=== PATIENT | female | born 1950 | race Caucasian/White ===

== ENCOUNTER 2016-03-15 08:15 | Outpatient (CLI) | payer MEDICARE, OTHER | END 2016-03-15 08:16 | disposition home or self-care (01) | DX: B18.2 Chronic viral hepatitis C (principal) ==

== ENCOUNTER 2016-04-20 09:00 | Outpatient (CLI) | payer MEDICARE, OTHER | END 2016-04-20 09:01 | disposition home or self-care (01) | DX: E78.2 Mixed hyperlipidemia (principal); E03.9 Hypothyroidism, unspecified; Z79.899 Other long term (current) drug therapy ==

== ENCOUNTER 2016-05-30 13:24 | Outpatient (CLI) | payer MEDICARE, OTHER | END 2016-05-30 13:25 | disposition home or self-care (01) | DX: Z12.31 Encounter for screening mammogram for malignant neoplasm of breast (principal) ==

== ENCOUNTER 2016-06-06 08:20 | Outpatient (CLI) | payer MEDICARE, OTHER | END 2016-06-06 08:21 | disposition home or self-care (01) | DX: B18.2 Chronic viral hepatitis C (principal) ==

== ENCOUNTER 2017-04-03 10:06 | Outpatient (CLI) | payer MEDICARE, OTHER | END 2017-04-03 10:07 | disposition home or self-care (01) | LOC: LAB 10:06 | PROVIDERS: ATTEND Internal Medicine Gastroenterology | DX: Z86.19 Personal history of other infectious and parasitic diseases (principal) | CPT/HCPCS: 36415; 87522 ==

== ENCOUNTER 2017-04-18 08:44 | Outpatient (CLI) | payer MEDICARE, OTHER ==
[2017-04-18 13:19] LABS: BASOPHILS # (AUTO) 0.1 10^3/uL (0.0-0.1); BASOPHILS % (AUTO) 1.1 %; EOSINOPHILS # (AUTO) 0.2 10^3/uL (0.0-0.7); HGB - HEMOGLOBIN 12.7 g/dL (12.0-16.0); LYMPHOCYTES # (AUTO) 1.9 10^3/uL (1.5-3.5); LYMPHOCYTES % (AUTO) 37.6 %; MEAN CORPUSCULAR HEMOGLOBIN 30.1 pg (27.0-31.0); MEAN CORPUSCULAR HGB CONC 33.6 g/dL (32.0-36.0); MEAN CORPUSCULAR VOLUME 89.4 fL (81.0-99.0); MEAN PLATELET VOLUME 8.7 fL (7.9-10.8); MONOCYTES # (AUTO) 0.4 10^3/uL (0.0-1.0); MONOCYTES % (AUTO) 6.9 %; NEUTROPHILS # (AUTO) 2.6 10^3/uL (1.5-6.6); NEUTROPHILS % (AUTO) 50.4 %; PLT - PLATELET COUNT 219 10^3/uL (130-450); RED BLOOD COUNT 4.21 10^6/uL (4.20-5.40); RED CELL DISTRIBUTION WIDTH 13.5 % (12.0-15.0); WHITE BLOOD COUNT 5.1 x10^3/uL (4.8-10.8)
[2017-04-18 14:05] LABS: ALBUMIN 4.1 g/dL (3.2-5.5); ALBUMIN/GLOBULIN RATIO 1.4 (1.0-2.2); ALKALINE PHOSPHATASE 48 IU/L (42-121); ALT ALANINE AMINOTRANSFERASE 14 IU/L (10-60); AST ASPARTATE AMINOTRANSFERASE 20 IU/L (10-42); BILIRUBIN,TOTAL 0.4 mg/dL (0.2-1.0); BUN - BLOOD UREA NITROGEN 23 mg/dL (6-20); CALCIUM 8.9 mg/dL (8.5-10.3); CARBON DIOXIDE - CO2 25 mmol/L (21-32); CHLORIDE 106 mmol/L (101-111); CHOL/HDL RATIO 3.2 (<4.4); CHOLESTEROL 149 mg/dL; CREATININE 0.7 mg/dL (0.4-1.0); GFR - MDRD 83 (>89); GLUCOSE 97 mg/dL (70-100); HDL CHOLESTEROL 47 mg/dL; LDL CHOLESTEROL,CALCULATED 86 mg/dL; LDL/HDL RATIO 1.8 (<4.4); SODIUM 138 mmol/L (135-145); VLDL CHOLESTEROL 16 mg/dL
== END 2017-04-18 08:45 | disposition home or self-care (01) ==
LOC: LAB.N 08:44
PROVIDERS: ATTEND Nurse Practitioner Primary Care
DX: M81.0 Age-related osteoporosis without current pathological fracture (principal); Z79.899 Other long term (current) drug therapy; E03.9 Hypothyroidism, unspecified
CPT/HCPCS: 36415; 80053; 80061; 82306; 83721; 84443; 85025

== ENCOUNTER 2017-05-01 10:30 | Outpatient (CLI) | payer MEDICARE, OTHER ==
--- NOTE | 2017-05-02 12:55 | DEXA Report ---
DEXA SCAN: 05/01/2017 CLINICAL INDICATION: Osteoporosis. TECHNIQUE: Dual energy x-ray absorptiometry (DXA) was performed on a [employer] system. Regions measured are the AP spine, femoral neck, and, if needed, forearm. COMPARISON: None. In accordance with the International Society for Clinical Densitometry (ISCD) guidelines, data from previous exams may be reanalyzed using current recommendations and techniques. This is done to allow a more accurate basis for comparison with the current study. FINDINGS Data for the lumbar spine is as follows: REGION BMD (g/cm/cm) T-SCORE Z-SCORE L1 0.848 -2.4 -0.6 L2 1.036 -1.4 0.4 L3 0.964 -2.0 -0.2 L4 1.127 -0.6 1.2 L1-L4 1.006 -1.5 0.3 NOTE: All evaluable vertebrae are used for classification. Data for the hip is as follows: REGION BMD (g/cm/cm) T-SCORE Z-SCORE Neck 0.753 -2.0 -0.3 TOTAL 0.780 -1.8 -0.3 NOTE: The femoral neck or total proximal femur, whichever is lowest, is used for classification. IMPRESSION WHO CLASSIFICATION BASED ON THE INTERNATIONAL REFERENCE STANDARD IS OSTEOPENIA. FRACTURE RISK IS INCREASED. RECOMMENDATION: Patients with diagnosis of osteoporosis or osteopenia should have regular bone mineral density assessment. For those eligible for Medicare, routine testing is allowed once every 2 years. Testing frequency can be increased for patients who have rapidly progressing disease or for those who are receiving medical therapy to restore bone mass. COMMENT World Health Organization (WHO) definitions for osteoporosis and osteopenia: NORMAL BMD: T-score at 1.0 or higher, fracture risk is low. OSTEOPENIA BMD: T-score between 1.0 and -2.5, fracture risk is increased. OSTEOPOROSIS BMD: T-score at 2.5 or lower, fracture risk high. National Osteoporosis Foundation recommends: 1. Obtain adequate dietary calcium (at least 1200 mg per day) and vitamin D (400 -800 international units per day). 2. Participate, as appropriate, in regular weightbearing and muscle- strengthening exercise. 3. Avoid tobacco use and reduce alcohol and caffeine intake. 4. For more detailed information see the website at www.NOF.org. TD: 05/01/2017 11:39 MTDD
== END 2017-05-01 10:31 | disposition home or self-care (01) ==
LOC: DI 10:30
PROVIDERS: ATTEND Nurse Practitioner Primary Care
DX: M85.89 Other specified disorders of bone density and structure, multiple sites (principal); L65.9 Nonscarring hair loss, unspecified
CPT/HCPCS: 36415; 77080; 82728

== ENCOUNTER 2018-03-21 09:57 | Outpatient (CLI) | payer MEDICARE, OTHER ==
[2018-03-21 13:52] LABS: BASOPHILS % (AUTO) 0.8 %; EOSINOPHILS # (AUTO) 0.1 10^3/uL (0.0-0.7); EOSINOPHILS % (AUTO) 2.8 %; HGB - HEMOGLOBIN 13.9 g/dL (12.0-16.0); LYMPHOCYTES # (AUTO) 1.5 10^3/uL (1.5-3.5); LYMPHOCYTES % (AUTO) 31.4 %; MEAN CORPUSCULAR HGB CONC 32.7 g/dL (32.0-36.0); MEAN CORPUSCULAR VOLUME 91.8 fL (81.0-99.0); MEAN PLATELET VOLUME 8.6 fL (7.9-10.8); MONOCYTES # (AUTO) 0.3 10^3/uL (0.0-1.0); MONOCYTES % (AUTO) 6.8 %; NEUTROPHILS # (AUTO) 2.7 10^3/uL (1.5-6.6); NEUTROPHILS % (AUTO) 58.2 %; PLT - PLATELET COUNT 225 10^3/uL (130-450); RED BLOOD COUNT 4.63 10^6/uL (4.20-5.40); RED CELL DISTRIBUTION WIDTH 13.3 % (12.0-15.0); WHITE BLOOD COUNT 4.7 x10^3/uL (4.8-10.8)
[2018-03-21 14:21] LABS: ALBUMIN 4.4 g/dL (3.2-5.5); ALBUMIN/GLOBULIN RATIO 1.3 (1.0-2.2); ALKALINE PHOSPHATASE 48 IU/L (42-121); ALT ALANINE AMINOTRANSFERASE 18 IU/L (10-60); AST ASPARTATE AMINOTRANSFERASE 23 IU/L (10-42); BILIRUBIN,TOTAL 0.5 mg/dL (0.2-1.0); BUN - BLOOD UREA NITROGEN 16 mg/dL (6-20); CALCIUM 9.2 mg/dL (8.5-10.3); CARBON DIOXIDE - CO2 27 mmol/L (21-32); CHLORIDE 104 mmol/L (101-111); CHOL/HDL RATIO 2.8 (<4.4); CHOLESTEROL 183 mg/dL; CREATININE 0.7 mg/dL (0.4-1.0); GFR - MDRD 83 (>89); GLUCOSE 88 mg/dL (70-100); HDL CHOLESTEROL 65 mg/dL; LDL CHOLESTEROL,CALCULATED 103 mg/dL; LDL/HDL RATIO 1.6 (<4.4); SODIUM 139 mmol/L (135-145); TOTAL PROTEIN 7.7 g/dL (6.7-8.2); VLDL CHOLESTEROL 15 mg/dL
== END 2018-03-21 23:59 | disposition home or self-care (01) ==
LOC: LAB.R 09:57
PROVIDERS: ATTEND Nurse Practitioner Primary Care
DX: M81.0 Age-related osteoporosis without current pathological fracture (principal); Z79.899 Other long term (current) drug therapy; E03.9 Hypothyroidism, unspecified; E78.5 Hyperlipidemia, unspecified
CPT/HCPCS: 80053; 80061; 82306; 83721; 84443; 85025

== ENCOUNTER 2018-05-19 10:22 | Outpatient (CLI) | payer MEDICARE, OTHER ==
--- NOTE | 2018-05-21 14:47 | Mammography Report ---
Reason: SCREENING MAMMO Procedure Date: 05/19/2018 Accession Number: [id number] / [id number] Procedure: RAHEEL - Screening Mammo w/Baldomero CPT Code: FULL RESULT: EXAM: Screening Mammo w/Baldomero DATE: 05/19/2018 10:55 AM CLINICAL HISTORY: Screening exam. No reported risk factors. TECHNIQUE: (B) - Bilateral CC and MLO views were obtained. A right laterally exaggerated views obtained. COMPARISON: 05/30/2016 through 12/26/2012. PARENCHYMAL PATTERN: (D) - The breast(s) demonstrate(s) heterogeneously dense fibroglandular parenchyma. FINDINGS: There are typically benign coarse calcifications. There are no suspicious masses, calcifications, or areas of distortion. IMPRESSION: Benign findings. BI-RADS category 2. RECOMMENDATION: (ANNUAL) - Recommend routine annual screening mammography. BI-RADS CATEGORY: (2) - Benign Findings. STANDARD QUALIFYING STATEMENTS: 1. This examination was not reviewed with the aid of Computer-Aided Detection (CAD). 2. A negative or benign imaging report should not preclude biopsy if clinically suspicious findings are present. 3. Dense breasts may obscure an underlying neoplasm. 4. This examination was reviewed with the aid of 3D breast imaging (tomosynthesis).
== END 2018-05-19 10:23 | disposition home or self-care (01) ==
LOC: DI 10:22
DX: Z12.31 Encounter for screening mammogram for malignant neoplasm of breast (principal)
CPT/HCPCS: 77063; 77067

== ENCOUNTER 2019-11-29 09:08 | Outpatient (CLI) | payer MEDICARE, OTHER ==
[2019-11-29 10:03] LABS: BASOPHILS % (AUTO) 0.9 %; EOSINOPHILS # (AUTO) 0.1 10^3/uL (0.0-0.7); EOSINOPHILS % (AUTO) 3.1 %; LYMPHOCYTES # (AUTO) 1.5 10^3/uL (1.5-3.5); LYMPHOCYTES % (AUTO) 33.6 %; MEAN CORPUSCULAR HEMOGLOBIN 30.2 pg (27.0-31.0); MEAN CORPUSCULAR HGB CONC 32.6 g/dL (32.0-36.0); MEAN CORPUSCULAR VOLUME 92.8 fL (81.0-99.0); MEAN PLATELET VOLUME 9.6 fL (7.9-10.8); MONOCYTES # (AUTO) 0.4 10^3/uL (0.0-1.0); MONOCYTES % (AUTO) 8.1 %; NEUTROPHILS # (AUTO) 2.5 10^3/uL (1.5-6.6); NEUTROPHILS % (AUTO) 54.1 %; PLT - PLATELET COUNT 220 10^3/uL (130-450); WHITE BLOOD COUNT 4.6 x10^3/uL (4.8-10.8)
[2019-11-29 10:21] LABS: ALBUMIN/GLOBULIN RATIO 1.3 (1.0-2.2); ALKALINE PHOSPHATASE 49 IU/L (42-121); ALT ALANINE AMINOTRANSFERASE 20 IU/L (10-60); AST ASPARTATE AMINOTRANSFERASE 24 IU/L (10-42); BILIRUBIN,TOTAL 0.7 mg/dL (0.2-1.0); BUN - BLOOD UREA NITROGEN 15 mg/dL (6-20); CALCIUM 9.3 mg/dL (8.5-10.3); CARBON DIOXIDE - CO2 27 mmol/L (21-32); CHLORIDE 102 mmol/L (101-111); CHOL/HDL RATIO 2.7 (<4.4); CHOLESTEROL 156 mg/dL; CREATININE 0.7 mg/dL (0.4-1.0); GLUCOSE 99 mg/dL (70-100); HDL CHOLESTEROL 58 mg/dL; LDL CHOLESTEROL,CALCULATED 89 mg/dL; LDL/HDL RATIO 1.5 (<4.4); SODIUM 138 mmol/L (135-145); VLDL CHOLESTEROL 9 mg/dL
[2019-11-29 10:33] LABS: THYROID STIMULATING HORMONE 1.25 uIU/mL (0.34-5.60)
[2019-11-29 10:35] LABS: FREE T3 2.96 pg/mL (2.5-3.9); FREE T4 (FREE THYROXINE) 1.18 ng/dL (0.58-1.64)
== END 2019-11-29 09:09 | disposition home or self-care (01) ==
LOC: LAB 09:08
PROVIDERS: ATTEND Family Medicine
DX: E78.5 Hyperlipidemia, unspecified (principal); E03.9 Hypothyroidism, unspecified; M81.0 Age-related osteoporosis without current pathological fracture
CPT/HCPCS: 36415; 80053; 80061; 83721; 84439; 84443; 84481; 85025

== ENCOUNTER 2019-11-29 11:02 | Outpatient (CLI) | payer MEDICARE, OTHER ==
--- NOTE | 2019-12-02 16:27 | Mammography Report ---
BILATERAL DIGITAL SCREENING MAMMOGRAM 3D/2D: 11/29/2019 CLINICAL: Routine screening. Comparison is made to exams dated: 05/19/2018 mammogram, 05/30/2016 mammogram, 05/07/2015 mammogram, mammogram, 12/26/2012 mammogram, and 10/20/2010 mammogram - [facility]. The tissue of both breasts is heterogeneously dense. This may lower the sensitivity of mammography. No significant masses, calcifications, or other findings are seen in either breast. There has been no significant interval change. IMPRESSION: NEGATIVE There is no mammographic evidence of malignancy. A 1 year screening mammogram is recommended. This exam was interpreted at Station ID: [id number]. NOTE: For mammograms, a report in lay terms will be sent to the patient. Approximately 15% of breast malignancies will not be visualized mammographically. In the management of a palpable breast mass, a negative mammogram must not discourage biopsy of a clinically suspicious lesion. Electronically Signed By: William Low M.D. [email or web address]/[email or web address]:11/29/2019 13:09:50 ACR BI-RADS Category 1: Negative 3341F PARENCHYMAL PATTERN: (D) - The breast(s) demonstrate(s) heterogeneously dense fibroglandular bry bass. BI-RADS CATEGORY: (1) - 1 RECOMMENDATION: (ANNUAL) - Recommend routine annual screening mammography. [id number] 1 year screening LATERALITY: (B)
== END 2019-11-29 11:03 | disposition home or self-care (01) ==
LOC: DI.N 11:02
PROVIDERS: ATTEND Family Medicine
DX: Z12.31 Encounter for screening mammogram for malignant neoplasm of breast (principal)
CPT/HCPCS: 77063; 77067

== ENCOUNTER 2020-04-27 09:48 | Outpatient (CLI) | payer MEDICARE, OTHER ==
--- NOTE | 2020-04-27 16:13 | DEXA Report ---
PROCEDURE: Dexa Spine and/or Hip INDICATIONS: BONE DISORDER TECHNIQUE: Dual energy x-ray absorptiometry (DXA) was performed on a [employer] System. Regions measur ed are the AP Spine, femoral neck, and if needed forearm. COMPARISON: 05/01/2017. FINDINGS: Lumbar Spine: Bone Mineral Density 0.925 g/cm/cm,T score -2.1, osteopenia Left Hip: Bone Mineral Density 0.787 g/cm/cm,T score -1.8, osteopenia Left Femoral Neck: Bone Mineral Density 0.743 g/cm/cm, T score -2.1, osteopenia (T score greater or equal to -1.0: NORMAL) (T score from -1.1 to -2.4: OSTEOPENIA) (T score less than or equal to -2.5 to: OSTEOPOROSIS) Impression: Osteopenia. Bone marrow density has increased 0.9% in the interval since prior exam obtai wesley 05/01/2017. Patients with diagnosis of osteoporosis or osteopenia should have regular bone mineral density assess ment. For those eligible for Medicare, routine testing is allowed once every 2 years. Testing frequ ency can be increased for patients who have rapidly progressing disease or for those who are receivin g medical therapy to restore bone mass. Reviewed by: Cathy Sullivan MD, PhD on 04/27/2020 4:12 PM PDT Approved by: Cathy Sullivan MD, PhD on 04/27/2020 4:12 PM PDT Station ID: [id number]
== END 2020-04-27 09:49 | disposition home or self-care (01) ==
LOC: DI 09:48
PROVIDERS: ATTEND Family Medicine
DX: M85.88 Other specified disorders of bone density and structure, other site (principal)

== ENCOUNTER 2021-05-06 08:13 | Outpatient (CLI) | payer MEDICARE, OTHER ==
[2021-05-06 11:55] LABS: BASOPHILS # (AUTO) 0.1 10^3/uL (0.0-0.1); BASOPHILS % (AUTO) 1.2 %; EOSINOPHILS # (AUTO) 0.3 10^3/uL (0.0-0.7); EOSINOPHILS % (AUTO) 5.8 %; HGB - HEMOGLOBIN 12.9 g/dL (12.0-16.0); LYMPHOCYTES % (AUTO) 41.4 %; MEAN CORPUSCULAR HEMOGLOBIN 29.7 pg (27.0-31.0); MEAN CORPUSCULAR HGB CONC 32.3 g/dL (32.0-36.0); MEAN CORPUSCULAR VOLUME 92.2 fL (81.0-99.0); MEAN PLATELET VOLUME 10.6 fL (7.9-10.8); MONOCYTES # (AUTO) 0.4 10^3/uL (0.0-1.0); MONOCYTES % (AUTO) 8.9 %; NEUTROPHILS # (AUTO) 2.1 10^3/uL (1.5-6.6); NEUTROPHILS % (AUTO) 42.3 %; PLT - PLATELET COUNT 227 10^3/uL (130-450); RED BLOOD COUNT 4.34 10^6/uL (4.20-5.40); RED CELL DISTRIBUTION WIDTH 12.9 % (12.0-15.0); WHITE BLOOD COUNT 4.9 x10^3/uL (4.8-10.8)
[2021-05-06 11:59] LABS: ALBUMIN 4.2 g/dL (3.2-5.5); ALBUMIN/GLOBULIN RATIO 1.4 (1.0-2.2); ALKALINE PHOSPHATASE 52 IU/L (42-121); ALT ALANINE AMINOTRANSFERASE 17 IU/L (10-60); AST ASPARTATE AMINOTRANSFERASE 21 IU/L (10-42); BILIRUBIN,TOTAL 0.5 mg/dL (0.2-1.0); BUN - BLOOD UREA NITROGEN 21 mg/dL (6-20); CALCIUM 9.2 mg/dL (8.5-10.3); CARBON DIOXIDE - CO2 27 mmol/L (21-32); CHLORIDE 100 mmol/L (101-111); CHOL/HDL RATIO 2.8 (<4.4); CHOLESTEROL 172 mg/dL; CREATININE 0.7 mg/dL (0.4-1.0); GFR - MDRD 82 (>89); GLUCOSE 93 mg/dL (70-100); HDL CHOLESTEROL 62 mg/dL; LDL CHOLESTEROL,CALCULATED 96 mg/dL; LDL/HDL RATIO 1.5 (<4.4); SODIUM 136 mmol/L (135-145); TOTAL PROTEIN 7.2 g/dL (6.7-8.2); TRIGLYCERIDES 71 mg/dL; VLDL CHOLESTEROL 14 mg/dL
[2021-05-06 12:07] LABS: THYROID STIMULATING HORMONE 1.39 uIU/mL (0.34-5.60)
== END 2021-05-06 08:14 | disposition home or self-care (01) ==
LOC: LAB.N 08:13
PROVIDERS: ATTEND Family Medicine
DX: B19.20 Unspecified viral hepatitis C without hepatic coma (principal); E78.5 Hyperlipidemia, unspecified; E03.9 Hypothyroidism, unspecified
CPT/HCPCS: 36415; 80053; 80061; 83721; 84443; 85025

== ENCOUNTER 2022-01-13 10:55 | Outpatient (CLI) | payer MEDICARE, OTHER ==
--- NOTE | 2022-01-14 10:38 | Mammography Report ---
BILATERAL DIGITAL SCREENING MAMMOGRAM 3D/2D: 01/13/2022 CLINICAL: Routine screening. Comparison is made to exams dated: 11/29/2019 mammogram, 05/19/2018 mammogram, and 05/30/2016 mammogra m - [facility]. Both breasts are heterogeneously dense, which may obscure small masses (category c / 51-75% glandular tissue). No significant masses, calcifications, or other findings are seen in either breast. There has been no significant interval change. IMPRESSION: NEGATIVE There is no mammographic evidence of malignancy. A 1 year screening mammogram is recommended. Based on the Tyrer Cuzick model (a risk assessment model) the patients lifetime risk is 5.6% and her 10 year risk is 4.6%. According to the ACR, ACS, and NCCN guidelines, an annual breast MRI exam mauro g with mammogram is recommended if the patients lifetime risk is 20% or greater. This exam was interpreted at Station ID: [id number]. NOTE: For mammograms, a report in lay terms will be sent to the patient. Approximately 15% of breast malignancies will not be visualized mammographically. In the management of a palpable breast mass, a negative mammogram must not discourage biopsy of a clinically suspicious lesion. Electronically Signed By: Mynor patnio/michael:01/13/2022 12:41:45 ACR BI-RADS Category 1: Negative 3341F PARENCHYMAL PATTERN: (D) - The breast(s) demonstrate(s) heterogeneously dense fibroglandular bry bass. BI-RADS CATEGORY: (1) - 1 RECOMMENDATION: (ANNUAL) - Recommend routine annual screening mammography. [id number] 1 year screening LATERALITY: (B)
== END 2022-01-13 10:56 | disposition home or self-care (01) ==
LOC: DI.N 10:55
DX: Z12.31 Encounter for screening mammogram for malignant neoplasm of breast (principal)

== ENCOUNTER 2022-06-22 08:00 | Outpatient (CLI) | payer MEDICARE, OTHER ==
[2022-06-22 11:42] LABS: BASOPHILS # (AUTO) 0.1 10^3/uL (0.0-0.1); BASOPHILS % (AUTO) 1.1 %; EOSINOPHILS # (AUTO) 0.2 10^3/uL (0.0-0.7); EOSINOPHILS % (AUTO) 4.2 %; HCT - HEMATOCRIT 42.7 % (37.0-47.0); HGB - HEMOGLOBIN 13.6 g/dL (12.0-16.0); LYMPHOCYTES # (AUTO) 1.9 10^3/uL (1.5-3.5); LYMPHOCYTES % (AUTO) 35.2 %; MEAN CORPUSCULAR HEMOGLOBIN 29.4 pg (27.0-31.0); MEAN CORPUSCULAR HGB CONC 31.9 g/dL (32.0-36.0); MEAN CORPUSCULAR VOLUME 92.4 fL (81.0-99.0); MEAN PLATELET VOLUME 10.4 fL (7.9-10.8); MONOCYTES # (AUTO) 0.5 10^3/uL (0.0-1.0); MONOCYTES % (AUTO) 9.3 %; NEUTROPHILS # (AUTO) 2.8 10^3/uL (1.5-6.6); PLT - PLATELET COUNT 260 10^3/uL (130-450); RED BLOOD COUNT 4.62 10^6/uL (4.20-5.40); RED CELL DISTRIBUTION WIDTH 13.2 % (12.0-15.0); WHITE BLOOD COUNT 5.5 x10^3/uL (4.8-10.8)
[2022-06-22 12:45] LABS: ALBUMIN 4.5 g/dL (3.2-5.5); ALBUMIN/GLOBULIN RATIO 1.4 (1.0-2.2); ALKALINE PHOSPHATASE 50 IU/L (42-121); ALT ALANINE AMINOTRANSFERASE 20 IU/L (10-60); AST ASPARTATE AMINOTRANSFERASE 26 IU/L (10-42); BILIRUBIN,TOTAL 0.5 mg/dL (0.2-1.0); BUN - BLOOD UREA NITROGEN 21 mg/dL (6-20); CALCIUM 9.7 mg/dL (8.5-10.3); CARBON DIOXIDE - CO2 29 mmol/L (21-32); CHLORIDE 107 mmol/L (101-111); CHOL/HDL RATIO 2.7 (<4.4); CHOLESTEROL 183 mg/dL; CREATININE 0.8 mg/dL (0.4-1.0); GFR - MDRD 70 (>89); GLUCOSE 106 mg/dL (70-100); HDL CHOLESTEROL 67 mg/dL; LDL CHOLESTEROL,CALCULATED 100 mg/dL; LDL/HDL RATIO 1.5 (<4.4); POTASSIUM 4.3 mmol/L (3.5-5.0); SODIUM 140 mmol/L (135-145); TOTAL PROTEIN 7.7 g/dL (6.7-8.2); TRIGLYCERIDES 80 mg/dL; VLDL CHOLESTEROL 16 mg/dL
[2022-06-22 12:51] LABS: THYROID STIMULATING HORMONE 0.68 uIU/mL (0.34-5.60)
== END 2022-06-22 23:59 | disposition home or self-care (01) ==
LOC: LAB.N 08:00
PROVIDERS: ATTEND Family Medicine
DX: E78.5 Hyperlipidemia, unspecified (principal); E03.9 Hypothyroidism, unspecified
CPT/HCPCS: 36415; 80053; 80061; 83721; 84443; 85025

== ENCOUNTER 2022-07-20 14:37 | Outpatient (CLI) | payer MEDICARE, OTHER ==
--- NOTE | 2022-07-20 19:03 | DEXA Report ---
PROCEDURE: Dexa Spine and/or Hip INDICATIONS: POST MENOPAUSAL TECHNIQUE: Dual energy x-ray absorptiometry (DXA) was performed on a [employer]ero System. Regions measur ed are the AP Spine, femoral neck, and if needed forearm. COMPARISON: 04/27/2020 FINDINGS: Lumbar Spine: Bone Mineral Density 0.981 g/cm/cm,T score -1.7. Previously -2.1 Left Femoral Neck: Bone Mineral Density 0.697 g/cm/cm, T score -2.5. Previously -2.1 Left Hip: Bone Mineral Density 0.780 g/cm/cm,T score -1.8. Previously -1.8 (T score greater or equal to -1.0: NORMAL) (T score from -1.1 to -2.4: OSTEOPENIA) (T score less than or equal to -2.5 to: OSTEOPOROSIS) Impression: By WHO criteria, this patient has low bone density (osteopenia). Interval statistical increase in bone minteral density of the lumbar spine. No statistical interval c hange in bone minteral density of the hip. Patients with diagnosis of osteoporosis or osteopenia should have regular bone mineral density assess ment. For those eligible for Medicare, routine testing is allowed once every 2 years. Testing frequ ency can be increased for patients who have rapidly progressing disease or for those who are receivin g medical therapy to restore bone mass. Reviewed by: Baldev Grimes MD on 07/20/2022 6:02 PM HARIS Approved by: Baldev Grimes MD on 07/20/2022 6:02 PM HARIS Station ID: [id number]
== END 2022-07-20 14:38 | disposition home or self-care (01) ==
LOC: DI 14:37
PROVIDERS: ATTEND Family Medicine
DX: Z78.0 Asymptomatic menopausal state (principal); M85.80 Other specified disorders of bone density and structure, unspecified site

== ENCOUNTER 2022-10-23 14:38 | Emergency (ER) | payer MEDICARE, OTHER ==
--- NOTE | 2022-10-23 15:01 | XRAY Report ---
PROCEDURE: Finger(s) RT INDICATIONS: Trauma TECHNIQUE: AP hand, 2 views of the third finger(s) acquired. COMPARISON: None. FINDINGS: Bones: No fractures or dislocations. No suspicious bony lesions. Flexion at the distal interphala ngeal joint of the third digit. Soft tissues: No suspicious soft tissue calcifications or masses. IMPRESSION: 1. Findings suggestive of extensor tendon injury involving the third digit. 2. No acute fracture. No osseous lesion. If symptoms and/or clinical suspicion for pathology continue , further assessment with repeat plain films, or advanced imaging (e.g., CT, MRI, or bone scan) is re commended for further assessment. Reviewed by: Norma Gordon MD on 10/23/2022 2:59 PM PDT Approved by: Norma Gordon MD on 10/23/2022 2:59 PM PDT Station ID: [id number]
--- NOTE | 2022-10-23 16:17 | ED Physician Documentation ---
PD HPI UPPER EXT INJURY - History obtained from History obtained from: Patient <Issa Madrigal - Last Filed: 10/23/22 16:17> - History obtained from History obtained from: Patient - History of Present Illness Location: Left, Finger (middle) Type of injury: Other (injured while stuffing cushions) Recently seen: Not recently seen <Ricardo Michele - Last Filed: 10/23/22 17:35> - Stated complaint Stated Complaint: LT FINGER INJ - Chief complaint Chief Complaint: Trauma Ext - Additonal information Additional information: 72-year-old female presents to the emergency department stating that she was stuffing the cushions of her couch after washing the upholstery and felt a pain in her right middle finger, states she cannot extend the distal phalanx. She is right-handed. Has never had similar symptoms previously. Nothing makes it better or worse. (Ricardo Michele) Review of Systems Constitutional: denies: Fever <Ricardo Michele - Last Filed: 10/23/22 17:35> PD PAST MEDICAL HISTORY - Past Medical History Cardiovascular: High cholesterol Endocrine/Autoimmune: HyPOthyroidism GI: Hepatitis <Issa Madrigal - Last Filed: 10/23/22 16:17> - Past Medical History Past Medical History: Yes Cardiovascular: High cholesterol Endocrine/Autoimmune: HyPOthyroidism <Ricardo Michele - Last Filed: 10/23/22 17:35> - Present Medications Home Medications: Ambulatory Orders Medication Instructions Recorded Confirmed Atorvastatin Calcium 10 mg PO HS 01/22/13 10/23/22 Calcium Carbonate [Calcium] 1,000 mg PO DAILY 01/22/13 10/23/22 Levothyroxine [Synthroid] 75 mcg PO DAILY 01/22/13 10/23/22 Multivitamin [Multivitamins] 1 each PO DAILY 01/22/13 10/23/22 - Allergies Allergies/Adverse Reactions: Allergies Allergy/AdvReac Type Severity Reaction Status Date / Time No Known Drug Allergies Allergy Verified 10/23/22 14:44 PD ED PE NORMAL - Vitals Vital signs reviewed: Yes - General General: Alert and oriented X 3, No acute distress - Derm Derm: Warm and dry - Extremities Extremities: Other (R middle finger - Patient is unable to extend the distal phalanx. Neurovascular intact. Slight bruising at the DIP joint. No swelling.) - Neuro Neuro: Alert and oriented X 3 - Psych Psych: Normal mood, Normal affect <Ricardo Michele - Last Filed: 10/23/22 17:35> Results - Rads (name of study) Right finger x-ray Relevant Findings:: Final report received, See rad report <Ricardo Michele - Last Filed: 10/23/22 17:35> - Vitals Vitals: Vital Signs - 24 hr 10/23/22 10/23/22 14:41 16:33 Temperature 36.1 C L 36.5 C Heart Rate 79 86 Respiratory 15 16 Rate Blood Pressure 142/79 H 130/80 O2 Saturation 98 100 Oxygen O2 Source Room air PD Medical Decision Making - ED course Complexity details: reviewed results, considered differential, d/w patient <Ricardo Michele - Last Filed: 10/23/22 17:35> - ED course ED course: No evidence of fracture or dislocation on x-ray of the finger. Appears to have a mallet finger. Placed in a mallet finger splint and we will have her follow- up with a hand surgeon in [place] for further care. She states that her is currently a patient at [facility]. Patient counseled regarding signs and symptoms for which I believe and urgent re-evaluation would be necessary. Patient with good understanding of and agreement to plan and is comfortable going home at this time This document was made in part using voice recognition software. While efforts are made to proofread this document, sound alike and grammatical errors may occur. (Ricardo Michele) Departure <Issa Madrigal - Last Filed: 10/23/22 16:17> <MicheleMagnoliaRicardo L - Last Filed: 10/23/22 17:35> - Departure Disposition: 01 Home, Self Care Clinical Impression: Mallet finger of right hand Condition: Good Instructions: ED Fx Mallet Finger Follow-Up: Tristian Perez MD [Primary Care Provider] - [facility] [Provider Group] Comments: You have a mallet finger today. Please follow up with a hand surgeon for further care. Wear the splint at all times. These injuries can take several months to heal Forms: PCP List Discharge Date/Time: 10/23/22 16:33
[2022-10-23 16:41] VITALS: BP 130/80; O2SAT 100
== END 2022-10-23 16:33 | disposition home or self-care (01) ==
LOC: ED 14:38
DX: M20.011 Mallet finger of right finger(s) (principal)
CPT/HCPCS: 99283

== ENCOUNTER 2023-09-27 07:22 | Outpatient (CLI) | payer MEDICARE, OTHER ==
[2023-09-27 07:39] LABS: BASOPHILS # (AUTO) 0.1 10^3/uL (0.0-0.1); BASOPHILS % (AUTO) 0.8 %; EOSINOPHILS # (AUTO) 0.2 10^3/uL (0.0-0.7); EOSINOPHILS % (AUTO) 2.5 %; HCT - HEMATOCRIT 40.9 % (37.0-47.0); HGB - HEMOGLOBIN 13.4 g/dL (12.0-16.0); LYMPHOCYTES # (AUTO) 1.6 10^3/uL (1.5-3.5); LYMPHOCYTES % (AUTO) 25.4 %; MEAN CORPUSCULAR HEMOGLOBIN 30.1 pg (27.0-31.0); MEAN CORPUSCULAR HGB CONC 32.8 g/dL (32.0-36.0); MEAN CORPUSCULAR VOLUME 91.9 fL (81.0-99.0); MEAN PLATELET VOLUME 9.5 fL (7.9-10.8); MONOCYTES # (AUTO) 0.4 10^3/uL (0.0-1.0); MONOCYTES % (AUTO) 6.5 %; NEUTROPHILS # (AUTO) 4.2 10^3/uL (1.5-6.6); NEUTROPHILS % (AUTO) 64.3 %; PLT - PLATELET COUNT 232 10^3/uL (130-450); RED BLOOD COUNT 4.45 10^6/uL (4.20-5.40); RED CELL DISTRIBUTION WIDTH 12.7 % (12.0-15.0); WHITE BLOOD COUNT 6.5 x10^3/uL (4.8-10.8)
[2023-09-27 07:56] LABS: ALBUMIN 4.3 g/dL (3.2-5.5); ALBUMIN/GLOBULIN RATIO 1.5 (1.0-2.2); ALKALINE PHOSPHATASE 54 IU/L (42-121); ALT ALANINE AMINOTRANSFERASE 18 IU/L (10-60); AST ASPARTATE AMINOTRANSFERASE 19 IU/L (10-42); BILIRUBIN,TOTAL 0.4 mg/dL (0.2-1.0); BUN - BLOOD UREA NITROGEN 20 mg/dL (6-20); CALCIUM 9.4 mg/dL (8.5-10.3); CARBON DIOXIDE - CO2 30 mmol/L (21-32); CHLORIDE 104 mmol/L (101-111); CHOL/HDL RATIO 3.4 (<4.4); CHOLESTEROL 170 mg/dL; CREATININE 0.7 mg/dL (0.6-1.3); GFR - MDRD 82 (>89); GLUCOSE 117 mg/dL (74-104); HDL CHOLESTEROL 50 mg/dL; LDL CHOLESTEROL,CALCULATED 99 mg/dL; POTASSIUM 4.4 mmol/L (3.5-4.5); SODIUM 138 mmol/L (135-145); TOTAL PROTEIN 7.2 g/dL (6.4-8.9); TRIGLYCERIDES 103 mg/dL; VLDL CHOLESTEROL 21 mg/dL
[2023-09-27 08:07] LABS: THYROID STIMULATING HORMONE 1.06 uIU/mL (0.34-5.60)
== END 2023-09-27 07:23 | disposition home or self-care (01) ==
LOC: LAB 07:22
PROVIDERS: ATTEND Family Medicine
DX: E78.5 Hyperlipidemia, unspecified (principal); B19.20 Unspecified viral hepatitis C without hepatic coma; M81.0 Age-related osteoporosis without current pathological fracture; E03.9 Hypothyroidism, unspecified
CPT/HCPCS: 36415; 80053; 80061; 83721; 84443; 85025